=== PATIENT | male | born 1950 | race Caucasian/White ===

== ENCOUNTER → 2017-10-25 | Outpatient (CLI) | payer MEDICARE | LOC: M WUC 09:22 | DX: S67.192A Crushing injury of right middle finger, initial encounter (principal); X58.XXXA Exposure to other specified factors, initial encounter; Y92.9 Unspecified place or not applicable | CPT/HCPCS: 73140 ==

== ENCOUNTER → 2023-11-18 | Outpatient (REF) | payer MEDICARE ==
[~2023-11-18] MED LIST: ASPI81TA86 PO; CIPR-249 PO; PERC5TAB12 PO; VITA200C10 PO
[2023-11-18 18:40] LABS: CREATININE, SERUM 1.5 MG/DL (0.70-1.30)
[2023-11-18 18:47] LABS: CREATININE CLEARANCE, URINE 64.2 ML/MIN (85-125); CREATININE, URINE 77.08 MG/DL
[2023-11-18 19:06] LABS: CALCIUM LEVEL 9.5 MG/DL (8.3-10.6); CREATININE FOR GFR 1.48 MG/DL (0.70-1.30); GLOMERULAR FILTRATION RATE 49.5 (>42); PHOSPHORUS LEVEL 2.3 MG/DL (2.4-5.1); POTASSIUM SERUM 4.7 MMOL/L (3.5-5.1)
== END ==
LOC: M LAB REF 16:58
PROVIDERS: ATTEND Internal Medicine Nephrology
DX: N18.31 Chronic kidney disease, stage 3a (principal)

== ENCOUNTER → 2023-12-23 | Outpatient (CLI) | payer MEDICARE | LOC: M RAD 08:56 | PROVIDERS: ATTEND Internal Medicine Nephrology | DX: N18.31 Chronic kidney disease, stage 3a (principal); I12.9 Hypertensive chronic kidney disease with stage 1 through stage 4 chronic kidney disease, or unspecified chronic kidney disease; N20.0 Calculus of kidney ==